=== PATIENT | male | born 1970 | race Caucasian/White ===

== ENCOUNTER 2020-05-23 07:53 | Day surgery (SDC) | payer OTHER, SELFPAY ==
[2020-05-17 10:40] VITALS: BMI 31.4
--- NOTE | 2020-05-22 10:04 | P.CONAN_ITS ---
Documented by User: Milvia Veliz 05/22/20 10:06 HPI - Anesthesia Eval Consult details Narrative: 49yo M for EGD and Colonoscopy [facility] Past Medical History Medical History Asthma GERD (gastroesophageal reflux disease) Renal calculi Surgical History Surgical History Hx of esophagogastroduodenoscopy S/P cystoscopy with ureteral stent placement Social History Social History Smoking Status: Never smoker Use of substances other than those prescribed or required for medical reasons: No Advance Directives Information Provided: No Recently lost weight without trying: No Meds Allergies Allergy/AdvReac Type Severity Reaction Status Date / Time No Known Allergies Allergy Verified 05/17/20 10:45 Home Medications Medication Instructions Recorded Confirmed Type albuterol sulfate [Proventil HFA] 2 puff INHALATION Q4-6H PRN 05/17/20 05/17/20 History omeprazole 20 mg PO DAILY 05/17/20 05/17/20 History Exam Exam Date and Time: May 22, 2020 1004 Height,Weight and Vital Signs: Height 6 ft 2 in Weight 111.13 kg Assessment and Plan Assessment Anesthesia Assessment: Chart Reviewed Documented by User: Joshua Rodriguez MD 05/23/20 09:18 [facility] Past Medical History Medical History Asthma GERD (gastroesophageal reflux disease) Renal calculi Surgical History Surgical History Hx of esophagogastroduodenoscopy S/P cystoscopy with ureteral stent placement Social History Social History Smoking Status: Never smoker Use of substances other than those prescribed or required for medical reasons: No Advance Directives Information Provided: No Recently lost weight without trying: No Meds Allergies Allergy/AdvReac Type Severity Reaction Status Date / Time No Known Allergies Allergy Verified 05/17/20 10:45 Home Medications Medication Instructions Recorded Confirmed Type albuterol sulfate [Proventil HFA] 2 puff INHALATION Q4-6H PRN 05/17/20 05/17/20 History omeprazole 20 mg PO DAILY 05/17/20 05/17/20 History Exam Airway Mallampati Class: II TM Dist: >3cm Neck ROM: Full Loose/Missing/Broken Teeth: No Heart: rrr Lungs: nl Other: ao3 Assessment and Plan Assessment Anesthesia Assessment: Anesthesia Plan Discussed and Chart Reviewed Final Anesthetic Review NPO: Yes ASA Class: II Final Preanesthetic Review: No Changes in Pt Med Stat and Consent Obtained/Reviewed Patient Risk: Low Procedure Risk: Low Anesthetic Plan Anesthetic Plan: MAC: Disposition: Standard PACU
[2020-05-23] MEDS: Lactated Ringers 1,000 ML 100 ML IVCONT (08:45)
[2020-05-23 08:53] VITALS: BP 122/79; PULSE 72; RESP 16; TEMP 36.4; O2SAT 97
--- NOTE | 2020-05-23 09:20 | MHC.SHP ---
Pre-Procedural Eval Section B Chief Complaint: screening acid reflux Details of Present Illness: gerd and colon screen Relevant Family History (Specify if Yes): No Relevant Social History: None Present Medications: see Short Stay Collaborative assessment Medical History: Significant History (asthma) History of Previous Operations: Relevant previous surgery/procedure and date(s) (kidney stone) Allergies: Allergies Allergy/AdvReac Type Severity Reaction Status Date / Time No Known Allergies Allergy Verified 05/17/20 10:45 Review of Systems Sugical H&P ROS: Negative: Constitution, Cardiovascular, Respiratory, Neurological, Psychiatric, Hem-Onc, Allergic/Immunologic, Gastrointestinal, Genitourinary, Musculoskeletal, Integumentary, Endocrine and Eyes/Ears/Nose/Throat Exam Surgical H&P Exam: Normal: HEENT, Normal: Heart, Normal: Lungs, Normal: Extremities, Normal: Abdomen, Normal: Skin and Normal: Neurological Plan Diagnosis/Plan: Unchanged Patient has been examined and remains a candidate for the planned procedure
--- NOTE | 2020-05-23 09:51 | PM.OP ---
Brief Operative Note Date of procedure: 05/23/20 Pre-op diagnosis: GERd, colon screening Post-op diagnosis: same Procedure: Operative Information Procedure Description: EGD, Colonoscopy FLEXIBLE TRANSORAL UPPER GASTROINTESTINAL ENDOSCOPY AND COLONOSCOPY PROCEDURE NOTE UPPER ENDOSCOPY Consent: Indications for the procedure and potential complications of bleeding, perforation, reaction to medications and missed diagnosis were discussed with the patient and informed consent was obtained. Instrument: Olympus GIF H 190 J mid size upper endoscope Monitoring: Vital signs and clinical assessment, continuous EKG monitoring, Pulse oximetry, Carbon Dioxide monitoring and blood pressure monitoring were done throughout the procedure. Procedure: The patient was placed in the left lateral decubitis position and pre-procedure medications were administered and a bite block was placed. The endoscope was inserted into the mouth and advanced under direct vision to the third part of duodenum. A careful inspection was made as the upper endoscope was withdrawn including a retroflexed examination of the proximal stomach; Findings and interventions are described below. Findings: Larynx:normal Esophagus: GE junction at 40 cm, diaphragm hiatus at 40 cm, normal mucosa Stomach: Normal mucosa. Biopsies were obtained to r/o h pylori. Grade 2 flap valve on retroflexed examination of the cardia. Duodenum: Normal bulb and descending duodenum, Intervention: Biopsies as noted above COLONOSCOPY Instrument: Olympus variable stiffness pediatric scope 190L Colonoscopy Monitoring: Vital signs and clinical assessment, continuous EKG monitoring, Pulse oximetry, Carbon Dioxide monitoring and blood pressure monitoring were done throughout the procedure. Colon withdrawal time was 13 minutes. Procedure: The patient was placed in the left lateral decubitis position and pre-procedure medications were administered. After a digital rectal examination of the ano-rectum, the video colonoscope was inserted into the rectum and advanced through the colon to the cecum/TI. The colonoscope was slowly withdrawn in a retrograde panoramic fashion and the colon mucosa was carefully examined including a retroflexed view of the rectum. Findings and interventions are described below. Procedure Difficulty: Findings: Terminal Ileum-normal Cecum:normal Ascending Colon: normal Transverse Colon -normal Descending Colon:normal Sigmoid Colon: normal, 8-10 mm sessile polyp removed with cold snare Rectum: Retroflexion with small internal hemorrhoids, grade I Anorectum - normal Colon preparation: [place] Bowel Preparation Scale Right colon; 3 Transverse colon: 3 Left colon; 3 (0 = Unprepared colon segment with mucosa not seen due to solid stool that cannot be cleared. 1 = Portion of mucosa of the colon segment seen, but other areas of the colon segment not well seen due to staining, residual stool and/or opaque liquid. 2 = Minor amount of residual staining, small fragments of stool and/or opaque liquid, but mucosa of colon segment seen well. 3 = Entire mucosa of colon segment seen well with no residual staining, small fragments of stool or opaque liquid) Impression and Post Procedure Diagnosis: Endoscopy Findings: normal Colonoscopy Findings: internal hemorrhoids polyp Plan: Await Pathology results Repeat Colonoscopy in 5 yrs if adenoma polyp, otherwise 10 yrs or earlier if clinically indicated High fiber diet leaflet avoid straining at stool, epsom salts and sitz bath, anusol supps or cream Above findings were reviewed with the patient and relevant handouts were provided if indicated. Surgeon: Kassy Marques MD Anesthesia: MAC Condition: stable Disposition: PACU
[2020-05-23 09:54] VITALS: BP 96/56; PULSE 64; TEMP 36.2; O2SAT 97
[2020-05-23 10:10] VITALS: BP 100/69; PULSE 58; RESP 16; TEMP 522.2; TEMP 972; O2SAT 96
[2020-05-23 10:17] VITALS: BP 100/67; PULSE 68; RESP 16; TEMP 36.1; O2SAT 98
--- NOTE | 2020-05-23 10:35 | HO.POSTANES ---
Post Anesthesia Evaluation Post Anesthesia Evaluation Vital Signs: Vital Signs Temp Pulse Resp BP Pulse Ox 05/23/20 10:17 97 F 68 16 100/67 98 05/23/20 10:10 972 F H 58 16 100/69 96 05/23/20 09:54 97.2 F 64 96/56 L 97 05/23/20 08:53 97.5 F 72 16 122/79 97 Anesthesia: Monitored Mental Status: Awake Pain Control: Satisfactory Nausea/Vomiting: None Hydration: Adequate Anesthesia-Related Issues: No Anes. Related Issues
== END 2020-05-23 10:52 | disposition home or self-care (01) ==
PROVIDERS: Internal Medicine Gastroenterology; PCP Internal Medicine; Visit Provider Internal Medicine
PROC: (CPT 45385; principal; 2020-05-23 09:20)
DX: Z12.11 Encounter for screening for malignant neoplasm of colon (principal); D12.5 Benign neoplasm of sigmoid colon; K64.0 First degree hemorrhoids; K21.9 Gastro-esophageal reflux disease without esophagitis; K29.50 Unspecified chronic gastritis without bleeding; K44.9 Diaphragmatic hernia without obstruction or gangrene; J45.909 Unspecified asthma, uncomplicated; Z87.442 Personal history of urinary calculi; Z79.899 Other long term (current) drug therapy
CPT/HCPCS: 45385; 43239; 88305; 88342

== ENCOUNTER → 2020-06-12 14:47 | Outpatient (BNVA) | payer OTHER, SELFPAY | PROVIDERS: PCP Internal Medicine; Visit Provider Physician Assistant | DX: Z76.89 Persons encountering health services in other specified circumstances (principal) ==

== ENCOUNTER 2021-06-28 08:25 | Outpatient (REF) | payer OTHER, SELFPAY ==
[2021-06-28 08:39] LABS: MANUAL DIFF FLAG NO
[2021-06-28 09:17] LABS: Basophils Percent Auto 0.4 % (0-2); Eosinophils Absolute Auto 0.2 X10*3/uL (0.0-0.4); Eosinophils Percent Auto 4.4 % (0-4); Hematocrit 48.9 % (42.0-52.0); Hemoglobin 15.4 g/dl (14.0-18.0); Imm Gran Abs Auto 0.01 X10*3/uL (0.00-0.03); Imm Gran Pct Auto 0.2 % (0.0-0.4); Lymphocytes Absolute Auto 1.2 X10*3/uL (1.2-4.9); Lymphocytes Percent Auto 27.5 % (20-40); Mean Corpuscular HGB Conc 31.5 g/dl (31.0-36.0); Mean Corpuscular Hemoglobin 27.5 pg (27.0-33.0); Mean Corpuscular Volume 87.2 fL (80.0-98.0); Mean Platelet Volume 9.6 fL (9.4-12.4); Monocytes Absolute Auto 0.5 X10*3/uL (0.1-1.2); Neutrophils Absolute Auto 2.6 x10*3/uL (2.0-8.3); Neutrophils Percent Auto 57.5 % (45-73); Platelet Count 207 X10*3/uL (160-400); Red Blood Count 5.61 X10*6/uL (4.60-5.80); Red Cell Distribution Width 13.6 % (11.0-16.0); White Blood Count 4.5 X10*3/uL (4.8-10.8)
[2021-06-28 09:18] LABS: Appearance Urine CLEAR; Color Urine YELLOW; Glucose Urine UA NEG (NEG); Leukocyte Esterase Urine NEG (NEG); Nitrite Urine NEG (NEG); Urine Blood NEG (NEG); Urine Ketones NEG (NEG); Urine Protein 1+ MG/DL (NEG-TRACE)
[2021-06-28 09:35] LABS: RBC Urine 0-2 /HPF (0); WBC Urine 0 /HPF (0-4)
[2021-06-28 09:36] LABS: Amorphous Sediment Urine TRACE /LPF; Squamous Epithelial Cell Urine TRACE /LPF
[2021-06-28 09:39] LABS: Alanine Aminotransferase 27 U/L (0-40); Albumin Level 4.1 g/dL (3.5-5.0); Alkaline Phosphatase 88 U/L (39-117); Anion Gap 10 (12-20); Aspartate Amino Transferase 20 U/L (5-37); Blood Urea Nitrogen 21 mg/dL (9-16); Calcium 9.1 mg/dL (8.4-10.2); Carbon Dioxide 30 mmol/L (22-29); Chloride 105 mmol/L (96-108); Cholesterol 185 mg/dL; Estimated Glomerular Filt Rate > 60; Glucose Random 101 mg/dL (60-115); HDL Cholesterol 40 mg/dL; LDL Cholesterol Calculated 126 mg/dl; Potassium 4.9 mmol/L (3.3-5.1); Sodium 140 mmol/L (135-145); Total Protein 7.2 g/dL (6.5-8.0); Triglycerides 96 mg/dL
[2021-06-28 10:01] LABS: Free T4 (Free Thyroxine) 0.89 ng/dL (0.71-1.85); Prostate Specific Antigen Scr 0.71 ng/mL (<0.05-4.0); Thyroid Stimulating Hormone 0.93 uIU/mL (0.32-4.0)
[2021-06-30 09:37] LABS: Vitamin B12 792 pg/mL (200-900)
== END 2021-06-28 08:26 | disposition home or self-care (01) ==
LOC: HO.LAB 08:25
PROVIDERS: PCP Internal Medicine; Visit Provider Internal Medicine
DX: Z12.5 Encounter for screening for malignant neoplasm of prostate (principal); E66.9 Obesity, unspecified; E78.00 Pure hypercholesterolemia, unspecified
CPT/HCPCS: 36415; 80053; 80061; 81001; 82607; 82746; 84153; 84439; 84443; 85025

== ENCOUNTER 2021-07-16 12:05 | Outpatient (REF) | payer OTHER, SELFPAY ==
--- NOTE | ~2021-07-16 | US_ITS ---
EXAMINATION: US PELVIS LIMITED (BLADDER) CLINICAL INFORMATION: Dysuria COMPARISON: CT abdomen and pelvis 02/16/2018. TECHNIQUE: Real-time imaging of the bladder. FINDINGS: BLADDER: Well distended and normal. Bilateral ureteral jets are demonstrated. Prevoid bladder volume is 302 mL. Postvoid bladder volume is 15 mL. Prostate volume 28 mL. US/US bladder IMPRESSION: There is a small postvoid residual bladder volume. No focal thickening or echogenic stones. Normal prostate volume.
== END 2021-07-16 12:06 | disposition home or self-care (01) ==
LOC: HO.US 12:05
PROVIDERS: PCP Internal Medicine; Visit Provider Internal Medicine
DX: R30.0 Dysuria (principal)
CPT/HCPCS: 76857

== ENCOUNTER 2021-08-13 12:29 | Outpatient (REF) | payer OTHER, SELFPAY ==
[2021-08-13 15:17] LABS: Influenza A PCR NEGATIVE (Negative); Influenza B PCR NEGATIVE (Negative); Resp Syncy Virus RNA Qual PCR NEGATIVE (Negative); SARS COV2 PCR INHOUSE POSITIVE (Negative)
== END 2021-08-13 12:30 | disposition home or self-care (01) ==
LOC: HO.LAB 12:29
PROVIDERS: Visit Provider Family Medicine
DX: Z20.822 Contact with and (suspected) exposure to COVID-19 (principal); B34.9 Viral infection, unspecified
CPT/HCPCS: 0241U

== ENCOUNTER 2022-08-04 14:14 | Outpatient (REF) | payer OTHER, SELFPAY ==
[2022-08-04 15:16] LABS: Influenza A PCR POSITIVE (Negative); Influenza B PCR NEGATIVE (Negative); Resp Syncy Virus RNA Qual PCR NEGATIVE (Negative); SARS COV2 PCR INHOUSE NEGATIVE (Negative)
== END 2022-08-04 14:15 | disposition home or self-care (01) ==
LOC: HO.LNP 14:14
PROVIDERS: Visit Provider Nurse Practitioner Family
DX: Z20.822 Contact with and (suspected) exposure to COVID-19 (principal); B34.9 Viral infection, unspecified
CPT/HCPCS: 0241U

== ENCOUNTER 2022-09-07 09:29 | Outpatient (REF) | payer OTHER, SELFPAY ==
[2022-09-07 13:42] LABS: Blood Urea Nitrogen 18 mg/dL (9-16); Estimated Glomerular Filt Rate > 60
== END 2022-09-07 09:30 | disposition home or self-care (01) ==
LOC: HO.LAB 09:29
PROVIDERS: PCP Internal Medicine; Visit Provider Specialist
DX: B00.52 Herpesviral keratitis (principal)
CPT/HCPCS: 36415; 82565; 84520

== ENCOUNTER → 2022-10-13 13:14 | Outpatient (BNVA) | payer SELFPAY | PROVIDERS: PCP Internal Medicine; Visit Provider Physician Assistant Medical | DX: Z02.79 Encounter for issue of other medical certificate (principal) ==

== ENCOUNTER → 2024-06-14 08:20 | Outpatient (BNVA) | payer OTHER, SELFPAY | PROVIDERS: PCP Internal Medicine; Visit Provider Internal Medicine | DX: L23.7 Allergic contact dermatitis due to plants, except food (principal) | CPT/HCPCS: 99202 ==

== ENCOUNTER 2024-07-25 09:44 | Outpatient (AMB) | payer BC, SELFPAY ==
--- NOTE | 2024-07-25 10:48 | MHC.OFFWIV ---
Intake Vital Signs 07/25/24 10:49 Height 6 ft 2 in Weight 279 lb BMI 35.8 BP 136/90 H Blood Pressure Location Lt brachial Position Sitting Pulse 64 Pulse Source Pulse Oximeter Temp 97.5 F Temp Source Temporal Artery Scan Pulse Oximetry (%) 97 Oxygen Delivery Method Room Air Intake Visit Reasons: EP-lt eye swollen, rt elbow pain Intake Note: Patient here for left eye swelling and right elbow pain that has been present for about 1 week. Patient Tobacco Use Status: Never used Tobacco Allergies No Known Allergies Allergy (Verified 07/25/24 10:49) Do you need a note to return to daycare/school/sports/work: Yes HPI HPI Comments History of Present Illness Details History of Present Illness The patient is a 53-year-old male presenting with a swollen left eyelid and pain in the right elbow. The left eyelid became swollen this morning; the patient reports that the eye was not crusted shut and visual acuity remains intact. There is no history of contact lens use. The swelling is limited to the upper lid, and warm compresses have been applied earlier in the day with no improvement. The patient reports no discharge from the eye. Additionally, the patient has experienced pain in the right elbow since an exposure to poison tri approximately one month ago. There is localized pain and swelling at the elbow without loss of mobility. No contact with biomedical instrument technician was sought prior to today's visit regarding these issues. Physical Exam General: Cooperative, healthy appearing, comfortable, no acute distress and well developed Orientation: Patient oriented x3 Limitations: No limitations Head: Normal to inspection Ears: Hearing grossly normal bilaterally Nose: Normal Nxternal nose present Face and sinus: ormal facial exam Eyes: erythema and edema of left upper lid, pterygium on left eye, no discharge noted, EOM intact Neck: Normal visual inspection and Yes full ROM Respiratory: Normal respiratory effort and able to speak in complete sentences. Skin: No rashes or lesions noted, except for swelling in the right elbow area Neuro: Patient oriented x3 Extremities: Swelling and pain noted in the right elbow area, especially when touched [facility] Medical History (Updated 07/25/24 @ 11:04 by Mandy Valle PA-C) Obesity (BMI 30-39.9) Rotator cuff disorder Renal calculi GERD (gastroesophageal reflux disease) Asthma Surgical History Hx of esophagogastroduodenoscopy S/P cystoscopy with ureteral stent placement Family History (Updated 12/19/20 @ 12:28 by Sherie Bedoya MD) Maternal Uncle Colon malignancy Maternal Aunt Breast cancer Paternal Aunt Breast cancer Daughter Bipolar 1 disorder Social History (Updated 06/27/21 @ 14:14 by Sherie Bedoya MD) Housing: House Alcohol intake: never Patient Tobacco Use Status: Never used Tobacco Tobacco use type: Cigarette e-Cigarette/Vaping Use: Never Used Second Hand Smoke Exposure: No Current occupational status: employed Review of Systems Const All systems reviewed & are unremarkable except as noted in HPI and below Physical Exam Vital Signs: Last Vital Signs Temp 97.5 F 07/25/24 10:49 Pulse 64 07/25/24 10:49 BP 136/90 H 07/25/24 10:49 Pulse Ox 97 07/25/24 10:49 Oxygen Delivery Method Room Air 07/25/24 10:49 BMI result Body Mass Index 35.8 Assessment & Plan Assessment & Plan (1) Hordeolum externum left upper eyelid: Code(s): H00.014 - Hordeolum externum left upper eyelid Plan: - For the swollen eyelid, I recommend continuing the use of warm compresses every hour or two, applying for 10 minutes each time. Erythromycin ophthalmic ointment will be prescribed to be applied four times daily to the left eye for seven days to prophylactically treat potential infectious etiology. Patient was informed and verbally consented to the use of an ambient scribe for clinic note documentation during this visit. (2) Right elbow pain: Code(s): M25.521 - Pain in right elbow Plan: - For the right elbow pain, I recommend non-steroidal anti-inflammatory drugs NSAIDs like Aleve for reducing inflammation and suggest applying ice to the affected area. Encourage rest and monitoring over the next few weeks. If symptoms persist, follow-up with Dr. Mendez is indicated for further evaluation. Medications: New erythromycin Apply to left eye 4 times a day while awake 0.5 inches ophthalmic (eye) QID 3.5 grams 0RF Coding Level of Care Code Est Pt Level 4 (58766) Diagnoses Hordeolum externum left upper eyelid H00.014 Right elbow pain M25.521
[2024-07-25 10:49] VITALS: BP 136/90; PULSE 64; TEMP 36.4; O2SAT 97; BMI 35.8
== END 2024-07-25 11:18 | disposition home or self-care (01) ==
PROVIDERS: PCP Internal Medicine; Visit Provider Physician Assistant
DX: H00.014 Hordeolum externum left upper eyelid (principal); M25.521 Pain in right elbow

== ENCOUNTER 2024-09-05 09:56 | Outpatient (AMB) | payer BC, SELFPAY ==
[2024-09-05 10:12] VITALS: BP 122/88; PULSE 112; TEMP 37; O2SAT 96; BMI 34.4
--- NOTE | 2024-09-05 10:12 | MHC.OFFWIV ---
Intake Vital Signs 09/05/24 10:12 Height 6 ft 2 in Weight 268 lb BMI 34.4 BP 122/88 Blood Pressure Location Lt brachial Position Sitting Pulse 112 H Pulse Source Pulse Oximeter Temp 98.6 F Temp Source Oral Pulse Oximetry (%) 96 Oxygen Delivery Method Room Air Intake Visit Reasons: EP Head ache, stomach, nausea Intake Note: Pt presents to the office today for c/o headache,stomach pain, nausea,vomiting,diarrhea x3 days. Patient Tobacco Use Status: Never used Tobacco Allergies No Known Allergies Allergy (Verified 09/05/24 10:14) HPI HPI Comments History of Present Illness Details History of Present Illness - The patient is a 53-year-old male presenting with acute onset of gastrointestinal symptoms including nausea, vomiting, diarrhea, and generalized body aches. - Symptoms began last night and include severe body aches, with nausea, vomiting, and diarrhea accompanying. - He denies hematochezia, melena, or documented fevers, though he felt subjectively hot overnight. - Limited oral intake due to symptoms has been reported. - Increased heart rate noted, potentially due to dehydration from prolonged vomiting and diarrhea. - Previous episodes of similar symptoms have not been experienced previously. - Norovirus is suspected due to ongoing viral activity in the community. Grandson recently sick with similar symptoms. - Treatment interventions to date have been limited to dietary adjustments but no medical therapies have been effective yet. Physical Exam General: Cooperative, healthy appearing, comfortable, no acute distress and well developed Orientation: Patient oriented x3 Limitations: No limitations Head: Normal to inspection Ears: Hearing grossly normal bilaterally Nose: Normal Nxternal nose present Face and sinus: ormal facial exam Eyes: Appearance normal, both eyes and all related structures Neck: Normal visual inspection and Yes full ROM Respiratory: Normal respiratory effort and able to speak in complete sentences. Skin: No rashes or lesions noted Neuro: Patient oriented x3 Extremities: Normal to inspection [facility] Medical History Obesity (BMI 30-39.9) Rotator cuff disorder Renal calculi GERD (gastroesophageal reflux disease) Asthma Surgical History Hx of esophagogastroduodenoscopy S/P cystoscopy with ureteral stent placement Family History Maternal Uncle Colon malignancy Maternal Aunt Breast cancer Paternal Aunt Breast cancer Daughter Bipolar 1 disorder Social History Housing: House Alcohol intake: never Patient Tobacco Use Status: Never used Tobacco Tobacco use type: Cigarette e-Cigarette/Vaping Use: Never Used Second Hand Smoke Exposure: No Current occupational status: employed Review of Systems Const All systems reviewed & are unremarkable except as noted in HPI and below Physical Exam Vital Signs: Last Vital Signs Temp 98.6 F 09/05/24 10:12 Pulse 112 H 09/05/24 10:12 BP 122/88 09/05/24 10:12 Pulse Ox 96 09/05/24 10:12 Oxygen Delivery Method Room Air 09/05/24 10:12 BMI result Body Mass Index 34.4 Office Meds ondansetron 4 mg disintegrating tablet Performing Provider: Mandy Valle PA-C Performing Location: [facility] Administered by: Mandy Valle PA-C on 09/05/24 10:37 Dose Route Admin Location Dispensed Lot Number Expiration Date [facility] Electronic [employer] 4 mg translingual 1 tab 11/14/24 43400-742-43 Assessment & Plan Assessment & Plan (1) Viral gastroenteritis: Code(s): A08.4 - Viral intestinal infection, unspecified Plan: Plan Management of the suspected acute viral gastroenteritis includes dietary modifications and prescriptions. The patient is advised to follow a bland diet BRAT diet and has been prescribed ondansetron Zofran to manage nausea. Hydration is encouraged with low-sugar fluids like Pedialyte to counteract dehydration effects. Symptom monitoring is essential given the self-limiting nature of viral gastroenteritis, and the patient knows to reach out for further medical attention if symptoms do not resolve or worsen. Work note for 5 days okay. Gave zofran in office as pt actively vomiting. Patient was informed and verbally consented to the use of an ambient scribe for clinic note documentation during this visit. Orders: Orders AMB Ondansetron Adult Dose Today A08.4 - Viral intestinal infection, unspecified Medications: New ondansetron 4 mg PO Q8H PRN 10 tabs 0RF nausea and vomiting ondansetron 4 mg translingual ONCE 1 tab 0RF A08.4 - Viral intestinal infection, unspecified Coding Level of Care Code Est Pt Level 4 (25208) Diagnoses Viral gastroenteritis A08.4
== END 2024-09-05 10:37 | disposition home or self-care (01) ==
PROVIDERS: PCP Internal Medicine; Visit Provider Physician Assistant
DX: A08.4 Viral intestinal infection, unspecified (principal)

== ENCOUNTER → 2024-09-05 09:56 | Outpatient (BNVA) | payer BC, SELFPAY | PROVIDERS: PCP Internal Medicine; Visit Provider Physician Assistant | DX: A08.4 Viral intestinal infection, unspecified (principal) ==

== ENCOUNTER → 2024-10-06 14:56 | Outpatient (BNVA) | payer SELFPAY | PROVIDERS: Visit Provider Physician Assistant Medical | DX: Z02.79 Encounter for issue of other medical certificate (principal) ==

== ENCOUNTER 2024-11-09 11:23 | Outpatient (AMB) | payer BC, SELFPAY ==
--- NOTE | 2024-11-09 11:30 | A.OFFPC_ITS ---
Vital Signs 11/09/24 11:31 Height 6 ft 2 in Weight 275 lb 3.2 oz BMI 35.3 BP 124/80 Blood Pressure Location Lt brachial Position Sitting Respiration 18 Pulse 71 Pulse Source Pulse Oximeter Temp 98.6 F Temp Source Oral Pulse Oximetry (%) 97 Oxygen Delivery Method Room Air Intake Visit Reasons: establish care Intake Note: Patient is a new patient here to re-establish care. Patient has not been seen elsewhere; had a lapse in care due to insurance issues. No request for medical records is needed. 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 Bedoya and would like to be placed back with him The patient is also asking to be referred to back to Dr. Will Hubbard who did his corneal implant He reports that is feeling ok other zendejas. He denies chest pain, sob, heart palpitation and dizziness He denies any stomach pain or change in bowel habits [facility] Medical History Asthma GERD (gastroesophageal reflux disease) Tubular adenoma of colon (~2019) Snoring Obesity (BMI 30-39.9) History of renal calculi Rotator cuff disorder Surgical History History of colonoscopy History of esophagogastroduodenoscopy (EGD) S/P cystoscopy with ureteral stent placement Family History Maternal Uncle Colon malignancy Maternal Aunt Breast cancer Paternal Aunt Breast cancer Daughter Bipolar 1 disorder Social History Housing: House Alcohol intake: never Patient Tobacco Use Status: Never used Tobacco Tobacco use type: Cigarette e-Cigarette/Vaping Use: Never Used Second Hand Smoke Exposure: No service: No Current occupational status: employed 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 1. Little interest or pleasure in doing things: not at all 2. Feeling down, depressed, or hopeless: not at all 3. Trouble falling or staying asleep, or sleeping too much: not at all 4. Feeling tired or having little energy: not at all 5. Poor appetite or overeating: not at all 6. Feeling bad about yourself - or that you are a failure or have let yourself or your family down: not at all 7. Trouble concentrating on things, such as reading the newspaper or watching television: not at all 8. Moving or speaking so slowly that other people could have noticed. Or the opposite - being so fidgety or restless that you have been moving around a lot more than usual: not at all 9. Thoughts that you would be better off or of hurting yourself in some way: not at all Total score: 0 Depression Screening Interpretation: Negative Depression Screening Done: Yes 30544 - PHQ-9 Billing: Yes Source: Developed by Drs. Jewel Murphy, Violeta Almodovar, Noble Bray and colleagues, with an educational jesi from [facility]. Thrive Questionnaire Date Thrive assessed: 11/09/24 I am a: Patient What is your living situation today?: I have a steady place to live Within the past 12 months, did the food you bought not last and you didn't have the money to get more?: Never true Within the past 12 months, did you worry whether your food would run out before you got money to buy more?: Never true Do you have trouble paying for medicines?: No Do you have trouble getting transportation to medical appointments?: No Do you have trouble paying your heating and electricity bill?: No Do you have trouble taking care of your child, family member or friend?: No Do you have trouble with day-to-day activities such as bathing, preparing meals, shopping, managing finances, etc.?: No Are you currently unemployed and looking for a job?: No Are you interested in more education?: No Please select the resources that you would like help with: None Currently or been in a relationship where the following occur: I choose not to answer THRIVE Score: 0 AUDIT C Alcohol Use Questionnaire (AUDIT-C) 1. How often do you have a drink containing alcohol?: Never Total Score: 0 LACIE-7 AMB Questionnaire LACIE-7 Date LACIE - 7 assessed: 11/09/24 Feeling nervous, anxious, or on edge: 0 = Not at all Not being able to stop or control worryin = Not at all Worrying too much about different things: 0 = Not at all Trouble relaxin = Not at all Being so restless that it is hard to sit still: 0 = Not at all Becoming easily annoyed or irritable: 0 = Not at all Feeling afraid as if something awful might happen: 0 = Not at all Total LACIE-7 score (0-4 normal; 5-9 mild; 10-14 moderate; 15-21 severe): 0 Source: Developed by Drs. Jewel Murphy, Violeta Almodovar, Noble Bray and colleagues, with an educational jesi from [facility]. LACIE-7 Assessment Billing LACIE-7 Assessment Tool: LACIE-7 Assessment 60040 Review of Systems Const Denies headache(s) Eyes Denies loss of vision ENT Denies vertigo, Denies dizziness, Denies headache(s) and Denies sore throat Card Denies chest pain, Denies leg edema and Denies lightheadedness Resp Denies cough, Denies hemoptysis and Denies wheezing GI Denies abdominal pain, Denies melena, Denies constipation, Denies diarrhea and Denies vomiting Denies dysuria, Denies urinary frequency and Denies urinary urgency Musc Denies arthralgias, Denies joint swelling, Denies numbness and Denies tingling Neuro Denies Abnormal speech present, Denies behavioral changes, Denies vertigo, Denies dizziness, Denies headache(s), Denies loss of vision, Denies memory loss, Denies numbness and Denies tingling Psych Denies anxiety, Denies behavioral changes, Denies depression, Denies memory loss and Denies panic attacks Bernabe/Lymph Denies easy bleeding and Denies easy bruising Aller/Immun Denies wheezing Physical exam (Primary Care) Vital Signs: Last Vital Signs Temp 98.6 F 11/09/24 11:31 Pulse 71 11/09/24 11:31 Resp 18 11/09/24 11:31 BP 124/80 11/09/24 11:31 Pulse Ox 97 11/09/24 11:31 Oxygen Delivery Method Room Air 11/09/24 11:31 BMI result Body Mass Index 35.3 Tobacco/Smoking Status: Tobacco use Status Tobacco use date assessed 11/09/24 11/09/24 11:39 Patient Tobacco Use Status Never used Tobacco 11/09/24 11:39 Tobacco use type Cigarette 11/09/24 11:39 e-Cigarette/Vaping Use Never Used 11/09/24 11:39 PHQ-9: PHQ-9 Score PHQ-9: Total score 0 11/09/24 11:56 Depression Screening Interpretation: Negative Thrive Assessment: Date of Thrive Assessment Date Thrive assessed 11/09/24 11/09/24 11:39 Currently or been in a relationship where the following occur: I choose not to answer Const General: healthy appearing, no acute distress, alert and awake Nutritional Appearance: well nourished Orientation/consciousness: oriented to person, oriented to place and oriented to time HENMT Ears: TM's normal bilaterally General nose exam: Normal nasal mucous membranes and turbinates present Eyes Conjunctivae: conjunctivae normal Sclerae: sclerae normal Pupils: Equal, round and reactive pupils present Neck Neck: Yes no lymphadenopathy and Yes no JVD Thyroid: Thyroid normal Carotids: no bruits Resp Effort & Inspection: normal respiratory effort and not tachypneic Auscultation: no crackles, no rales, no rhonchi and no wheezes Cardio Rate: regular rate Rhythm: regular rhythm Heart sounds: no murmurs and normal S1 and S2 GI Inspection: Yes distended and Yes obesity Palpation (GI): Soft to palpation, nontender, no hepatomegaly and no splenomegaly Auscultation: normal bowel sounds Skin General skin exam: no rashes or lesions noted and dry skin Neuro General: oriented to person, oriented to place and oriented to time Cranial nerves: Yes Equal, round and reactive pupils present Speech: No Abnormal speech present Gait exam (Neuro): Normal gait present Motor exam (neuro): no tremor noted Extrem Right upper extremity: full ROM Left upper extremity: full ROM Right lower extremity: full ROM; no edema Left lower extremity: full ROM; no edema Psych Mental Status: mental status grossly normal Speech and movement: Normal speech and movement present Affect: normal affect Attitude: cooperative Thought process: Normal thought process present Coding Level of Care Code New Pt Level 3 (26064) Diagnoses Snoring R06.83 Obesity (BMI 30-39.9) E66.9 Status post corneal transplant Z94.7 Additional Codes LACIE-7 Assessment Billing - LACIE-7 Assessment Tool: LACIE-7 Assessment 32636 ([id number]) PHQ-9 - 51900 - PHQ-9 Billing: Yes ([id number]) Time Spent (min) 36 Assessment & Plan Assessment & Plan (1) Snoring: Comment: (male, >50yo, +snorning, BMI 37, Neck 46cm, mallampati 3 - High Risk for BASHIR - needs sleep testing for DOT) Code(s): R06.83 - Snoring Category: Medical Plan: sleep study ordered (2) Obesity (BMI 30-39.9): Code(s): E66.9 - Obesity, unspecified Category: Medical Plan: Encouraged to exercise for at least 30 minutes a day/5 days a week Healthy eating discussed. Encouraged to eat fruits/vegetables, protein- fish/baked chicken, and to avoid salty/fried foods, sweets, caffeine and carbohydrates. Encouraged to increase water intake 6-8 glasses a day (3) Status post corneal transplant: Code(s): Z94.7 - Corneal transplant status Category: Surgical Plan: Dr. Will Hubbard , [place] did his surgery, he has not seen him over 2 years. Reports that when he tried to make an appt, he was told that has to be referred again. Referral was placed Orders: Orders Lipid Panel Today J45.909 - Unspecified asthma, uncomplicated, K21.9 - Gastro- esophageal reflux disease without esophagitis, R13.10 - Dysphagia, unspecified, Z00.00 - Encounter for general adult medical examination without abnormal findings TSH reflex Free T4 Today J45.909 - Unspecified asthma, uncomplicated, K21.9 - Gastro-esophageal reflux disease without esophagitis, R13.10 - Dysphagia, unspecified, Z00.00 - Encounter for general adult medical examination without abnormal findings UA CC w/rflx Micro + Cult Today J45.909 - Unspecified asthma, uncomplicated, K21.9 - Gastro-esophageal reflux disease without esophagitis, R13.10 - Dysphagia, unspecified, Z00.00 - Encounter for general adult medical examination without abnormal findings Glucose Fasting Today J45.909 - Unspecified asthma, uncomplicated, K21.9 - Gastro-esophageal reflux disease without esophagitis, R13.10 - Dysphagia, unspecified, Z00.00 - Encounter for general adult medical examination without abnormal findings Comprehensive [place]. Panel Fast Today J45.909 - Unspecified asthma, uncomplicated, K21.9 - Gastro-esophageal reflux disease without esophagitis, R13.10 - Dysphagia, unspecified, Z00.00 - Encounter for general adult medical examination without abnormal findings Complete Blood Count Auto Diff Today J45.90 - Unspecified asthma, uncomplicated, K21.9 - Gastro-esophageal reflux disease without esophagitis, R13.10 - Dysphagia, unspecified, Z00.00 - Encounter for general adult medical examination without abnormal findings Vitamin D 25-OH Total Today J45.90 - Unspecified asthma, uncomplicated, K21.9 - Gastro-esophageal reflux disease without esophagitis, R13.10 - Dysphagia, unspecified, Z00.00 - Encounter for general adult medical examination without abnormal findings Referrals Sleep Medicine Referral R06.83 - Snoring Ophthalmology Referral Z94.7 - Corneal transplant status
[2024-11-09 11:31] VITALS: BP 124/80; PULSE 71; RESP 18; TEMP 37; O2SAT 97; BMI 35.3
== END 2024-11-09 12:04 | disposition home or self-care (01) ==
LOC: HO.HMCH 11:24
DX: R06.83 Snoring (principal); E66.9 Obesity, unspecified; Z94.7 Corneal transplant status; Z68.35 Body mass index [BMI] 35.0-35.9, adult

== ENCOUNTER → 2024-11-09 11:23 | Outpatient (BNVA) | payer BC, SELFPAY | DX: R06.83 Snoring (principal); E66.9 Obesity, unspecified; Z68.35 Body mass index [BMI] 35.0-35.9, adult; Z94.7 Corneal transplant status | CPT/HCPCS: 96127 ==

== ENCOUNTER 2024-12-02 08:57 | Outpatient (REF) | payer BC, SELFPAY ==
[2024-12-02 09:12] LABS: MANUAL DIFF FLAG NO
[2024-12-02 10:07] LABS: Basophils Percent Auto 0.8 % (0-2); Eosinophils Absolute Auto 0.2 X10*3/uL (0.0-0.4); Eosinophils Percent Auto 4.8 % (0-4); Hemoglobin 15.7 g/dl (14.0-18.0); Lymphocytes Absolute Auto 1.3 X10*3/uL (1.2-4.9); Lymphocytes Percent Auto 33.7 % (20-40); Mean Corpuscular HGB Conc 31.4 g/dl (31.0-36.0); Mean Corpuscular Hemoglobin 27.3 pg (27.0-33.0); Mean Corpuscular Volume 86.8 fL (80.0-98.0); Mean Platelet Volume 9.5 fL (9.4-12.4); Monocytes Absolute Auto 0.4 X10*3/uL (0.1-1.2); Monocytes Percent Auto 8.9 % (2-11); Neutrophils Percent Auto 51.8 % (45-73); Platelet Count 187 X10*3/uL (160-400); Red Blood Count 5.76 X10*6/uL (4.60-5.80); Red Cell Distribution Width 13.7 % (11.0-16.0); White Blood Count 3.9 X10*3/uL (4.8-10.8)
[2024-12-02 10:41] LABS: Appearance Urine Clear; Color Urine Yellow; Glucose Urine UA Negative (Negative); Leukocyte Esterase Urine Negative (Negative); Nitrite Urine Negative (Negative); PH 8.5 (5.0-9.0); Urine Blood Negative (Negative); Urine Ketones Trace mg/dL (Negative); Urine Protein Trace mg/dL (Neg-Trace)
[2024-12-02 10:57] LABS: Alanine Aminotransferase 29 U/L (0-40); Anion Gap 12 (12-20); Aspartate Amino Transferase 26 U/L (5-37); Bilirubin Total 1.2 mg/dL (0.0-1.0); Blood Urea Nitrogen 16 mg/dL (9-16); Calcium 9.1 mg/dL (8.4-10.2); Carbon Dioxide 29 mmol/L (22-29); Chloride 105 mmol/L (96-108); Cholesterol 167 mg/dL (<200); Estimated Glomerular Filt Rate > 60; Glucose Fasting 96 mg/dL (60-99); HDL Cholesterol 39 mg/dL (>40); LDL Cholesterol Calculated 115 mg/dL (<100); Potassium 4.8 mmol/L (3.3-5.1); Sodium 141 mmol/L (135-145); Total Protein 7.3 g/dL (6.5-8.0); Triglycerides 65 mg/dL (<150)
[2024-12-02 11:25] LABS: TSH reflex Free T4 0.67 uIU/mL (0.32-4.0); Vitamin D 25-OH Total 20.5 ng/mL (>30)
[2024-12-02 13:09] LABS: Alkaline Phosphatase 87 U/L (39-117)
== END 2024-12-02 08:58 | disposition home or self-care (01) ==
LOC: HO.LAB 08:57
PROVIDERS: PCP Internal Medicine
DX: Z00.00 Encounter for general adult medical examination without abnormal findings (principal); K21.9 Gastro-esophageal reflux disease without esophagitis; J45.909 Unspecified asthma, uncomplicated; R13.10 Dysphagia, unspecified; Z13.6 Encounter for screening for cardiovascular disorders
CPT/HCPCS: 36415; 80053; 80061; 81003; 82306; 84443; 85025

== ENCOUNTER 2025-01-11 13:58 | Outpatient (AMB) | payer BC, SELFPAY ==
--- NOTE | 2025-01-11 14:07 | A.OFFVIS_ITS ---
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 Needs a sleep study, He told that he fit the criteria, he is older than 50 years old, he snores and is obese. Patient states patient gasps and stops breathing. Accompanied by: Spouse Allergies No Known Allergies Allergy (Verified 01/11/25 14:12) HPI Comments Details: 54 year old male here referred to us for sleep evaluation due to snoring. His Bronwyn helps with history. His c/o his loud pauses of snoring and gasping through the night, which last for more than a few seconds. She gets scared and she nudges him. 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 He is pretty active with the exception of L. elbow tendonitis, he says everything is fine. He had a r. 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 He feels fatigued in the mornings and has headaches, which he does not take anything to manage because they go away within 2 hours of waking. He has a history of GERD, and dysphagia with choking on his saliva he takes omeprazole daily. Denies RLS and Parasomnias. Mood and memory is stable. He does not smoke and never drinks. [facility] Medical History Asthma GERD (gastroesophageal reflux disease) Tubular adenoma of colon (~2019) Snoring Obesity (BMI 30-39.9) History of renal calculi Rotator cuff disorder Surgical History History of colonoscopy History of esophagogastroduodenoscopy (EGD) S/P cystoscopy with ureteral stent placement Family History Maternal Uncle Colon malignancy Maternal Aunt Breast cancer Paternal Aunt Breast cancer Daughter Bipolar 1 disorder Social History Housing: House Alcohol intake: never Patient Tobacco Use Status: Never used Tobacco Tobacco use type: Cigarette e-Cigarette/Vaping Use: Never Used Second Hand Smoke Exposure: No service: No Current occupational status: employed 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 Cognitive needs: No Hearing needs: No Vision needs: Yes (Reading glasses) Review of Systems Const All systems reviewed & are unremarkable except as noted in HPI and below Physical Exam Vital Signs: Last Vital Signs Pulse 96 01/11/25 14:09 BP 120/78 01/11/25 14:09 Pulse Ox 99 01/11/25 14:09 Oxygen Delivery Method Room Air 01/11/25 14:09 BMI result Body Mass Index 34.6 Const General: cooperative, comfortable and no acute distress Nutritional Appearance: obese, overweight and other (muscular built) Orientation/consciousness: patient oriented x3 HEENT Face and sinus: Yes normal facial exam and Yes face symmetric Throat: Yes other (Mallmpti score of 3) Eyes Other: R. eye corneal repair L. eye pinguecula medial side, does not obstruct vision. Pupils: Equal, round and reactive pupils present Neck Neck: Yes full ROM Resp Effort & Inspection: normal respiratory effort and able to speak in complete sentences Neuro General: patient oriented x3 and moves all extremities Cranial nerves: Yes Facial sensation intact/muscles of mastication intact, Yes Equal, round and reactive pupils present, Yes Normal accommodation reflex p resent, Yes Bilaterally intact EOM present, Yes Normal facial strength present, Yes Midline tongue present, Yes Ability to bilaterally rotate head present and Yes Ability to bilaterally elevate shoulders present Cognition (Neuro): normal cognition Gait exam (Neuro): Normal gait present Motor exam (neuro): 5/5 motor strength present throughout and Normal motor muscle tone present throughout Psych Appearance: grossly normal Attitude: cooperative Thought process: Normal thought process present Thought content: Normal thought content present Results Reviewed Results Reviewed: Reviewed Labs with patient LDL elevated and HDL low Assessment & Plan Assessment & Plan (1) BASHIR (obstructive sleep apnea): Code(s): G47.33 - Obstructive sleep apnea (adult) (pediatric) Category: Medical (2) Snoring: Comment: (male, >50yo, +snorning, BMI 37, Neck 46cm, mallampati 3 - High Risk for BASHIR - needs sleep testing for DOT) Code(s): R06.83 - Snoring Category: Medical (3) Excessive daytime sleepiness: Code(s): G47.19 - Other hypersomnia Category: Medical Plan HST snoring and gasping for air ? BASHIR evalution with HST and if inconclusive will refer to PSG. Labs fatigue r/o deficiencies B12, TSH Vit D and Ferritin. Patient Instructions: Sleep Hygiene provided: set a scheduled bedtime and wake time to help regulate the circadian rhythm and balance the release of pituitary hormones. Sleep in a dark room, temperatures below 68 degrees, and no devices n bed. Limit caffeinated products 6 hours prior to bed, and limit fluids 2-4 hours prior to bed. Gentle night yoga, diffusing essential oils, and playing soft music can be relaxing. Weight loss daily walking can help to reduce weight elevate mood and improve overall health. Coding Level of Care Code New Pt Level 4 (12277) Diagnoses BASHIR (obstructive sleep apnea) G47.33 Snoring R06.83 Excessive daytime sleepiness G47.19 Time Spent (min) 40 Comment Evaluation of BASHIR Sleep Questionnaire Difficulty falling asleep: No Difficulty staying asleep?: No Number of arousals: 1-2 Snoring: Yes Witnessed apneas: Yes Gasping arousals: Yes Nocturia: No GERD: Yes Vivid dreams: Yes Acting out dreams: No Abnormal behavior in sleep: No Abnormal movements in sleep: No Morning headaches: Yes Excessive daytime sleepiness: No Daytime naps: No Restless legs: No Hallucinations: No Sleep paralysis: No Drop attacks: No Sleep Study: No CPAP: No
[2025-01-11 14:09] VITALS: BP 120/78; PULSE 96; O2SAT 99; BMI 34.6
== END 2025-01-11 14:59 | disposition home or self-care (01) ==
LOC: HO.HSMS 13:58
PROVIDERS: Visit Provider Physician Assistant Medical
DX: G47.33 Obstructive sleep apnea (adult) (pediatric) (principal); R06.83 Snoring; G47.19 Other hypersomnia
CPT/HCPCS: 99204

== ENCOUNTER → 2025-01-11 13:58 | Outpatient (BNVA) | payer BC, SELFPAY | PROVIDERS: Visit Provider Physician Assistant Medical ==

== ENCOUNTER 2025-03-15 11:15 | Outpatient (AMB) | payer BC, SELFPAY ==
[2025-03-15 11:18] VITALS: BP 140/80; PULSE 70; RESP 18; TEMP 36.3; O2SAT 94; BMI 35.2
--- NOTE | 2025-03-15 11:18 | MHC.PC.OV ---
Vital Signs 03/15/25 11:18 03/15/25 11:37 Height 6 ft 2 in Weight 274 lb 8 oz BMI 35.2 BP 140/80 H 128/82 Blood Pressure Location Lt brachial Lt brachial Position Sitting Sitting Respiration 18 Pulse 70 Pulse Source Pulse Oximeter Temp 97.3 F Temp Source Temporal Artery Scan Pulse Oximetry (%) 94 Oxygen Delivery Method Room Air Intake Visit Reasons: annual physical Corpsman Required: No Accompanied by: Allergies No Known Allergies Allergy (Verified 03/15/25 11:38) Medication List - Last Reconciled 03/15/25 by JAS Jennings famciclovir 250 mg PO ONCE omeprazole 20 mg PO DAILY prednisolone acetate 1% 1 drp ophthalmic (eye) BID vitamin D3-vitamin K2 (MK4) 1,000-100 unit-mcg 1 tab PO DAILY MDD 1 tablet Tobacco use date assessed: 03/15/25 Dental Screening Dental Screen Date: 03/15/25 Did you have a dental visit in the last 12 months?: No Did you have a dental problem in the last 6 months where you did not have access to dental care?: No Was dental information given to patient?: No HPI annual physical HPI Details The patient is a 54-year-old male presenting for annual physical Dentist: up to date Eye: up to date Snellen: Right: Left: Corrected vision:yes, glassess-cheaters STI screening: Colonoscopy: done in 2019-sigmoid adenoma noted, due to be repeated in 2024. All first degree relatives should repeat in 5 years. Pap Smer: n/a PHQ-9: Flu: does not take this usually COVID: x2 Tdap:2019 Diet: Regular Exercise: reports that he does not workout but he is thinking about it, because they bought a treadmill, so he just needs to get motivated He was suppose to hand upper and bottom lacer his cpap, but went on vacation and he forgot about it. Encouraged the patient to call and find when he can go pick it up. He reports that his left ear is itchy. Denies chest pain, shortness of breath, heart palpitation or dizziness denies abdominal pain or change in bowel habits, positive heartburn on and off depending on what he eats. Denies any urinary symptoms PFSH Medical History Asthma GERD (gastroesophageal reflux disease) Tubular adenoma of colon (~2020) Snoring Obesity (BMI 30-39.9) History of renal calculi Rotator cuff disorder Surgical History History of colonoscopy History of esophagogastroduodenoscopy (EGD) S/P cystoscopy with ureteral stent placement Family History Maternal Uncle Colon malignancy Maternal Aunt Breast cancer Paternal Aunt Breast cancer Daughter Bipolar 1 disorder Social History Housing: House Alcohol intake: never Patient Tobacco Use Status: Never used Tobacco Tobacco use type: Cigarette e-Cigarette/Vaping Use: Never Used Second Hand Smoke Exposure: No service: No Current occupational status: employed 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 1. Little interest or pleasure in doing things: not at all 2. Feeling down, depressed, or hopeless: not at all 3. Trouble falling or staying asleep, or sleeping too much: not at all 4. Feeling tired or having little energy: not at all 5. Poor appetite or overeating: not at all 6. Feeling bad about yourself - or that you are a failure or have let yourself or your family down: not at all 7. Trouble concentrating on things, such as reading the newspaper or watching television: not at all 8. Moving or speaking so slowly that other people could have noticed. Or the opposite - being so fidgety or restless that you have been moving around a lot more than usual: not at all 9. Thoughts that you would be better off or of hurting yourself in some way: not at all Total score: 0 Depression Screening Interpretation: Negative Depression Screening Done: Yes Source: Developed by Drs. Jewel Murphy, Violeta Almodovar, Noble Bray and colleagues, with an educational jesi from [employer]. Thrive Questionnaire Date Thrive assessed: 03/15/25 I am a: Patient What is your living situation today?: I have a steady place to live Within the past 12 months, did the food you bought not last and you didn't have the money to get more?: Never true Within the past 12 months, did you worry whether your food would run out before you got money to buy more?: Never true Do you have trouble paying for medicines?: No Do you have trouble getting transportation to medical appointments?: No Do you have trouble paying your heating and electricity bill?: No Do you have trouble taking care of your child, family member or friend?: No Do you have trouble with day-to-day activities such as bathing, preparing meals, shopping, managing finances, etc.?: No Are you currently unemployed and looking for a job?: No Are you interested in more education?: No Please select the resources that you would like help with: None Currently or been in a relationship where the following occur: I choose not to answer THRIVE Score: 0 AUDIT C Alcohol Use Questionnaire (AUDIT-C) 1. How often do you have a drink containing alcohol?: Never 3. How often do you have six or more drinks on one occasion?: Never Total Score: 0 LACIE-7 AMB Questionnaire LACIE-7 Date LACIE - 7 assessed: 03/15/25 Feeling nervous, anxious, or on edge: 0 = Not at all Not being able to stop or control worryin = Not at all Worrying too much about different things: 0 = Not at all Trouble relaxin = Not at all Being so restless that it is hard to sit still: 0 = Not at all Becoming easily annoyed or irritable: 0 = Not at all Feeling afraid as if something awful might happen: 0 = Not at all Total LACIE-7 score (0-4 normal; 5-9 mild; 10-14 moderate; 15-21 severe): 0 Source: Developed by Drs. Jewel Murphy, Violeta Almodovar, Noble Bray and colleagues, with an educational jesi from [employer]. Review of Systems Const Reports daytime sleepiness, Denies headache(s), Reports lethargy and Reports snoring Eyes Denies loss of vision ENT Denies vertigo, Denies dizziness, Denies headache(s), Denies sore throat and Reports other (Left ear itchiness ) Card Denies chest pain, Denies leg edema and Denies lightheadedness Resp Denies cough, Denies hemoptysis, Reports snoring and Denies wheezing GI Denies abdominal pain, Denies melena, Denies constipation, Denies diarrhea and Denies vomiting Denies dysuria, Denies urinary frequency and Denies urinary urgency Musc Denies arthralgias, Denies joint swelling, Denies numbness and Denies tingling Neuro Denies Abnormal speech present, Denies behavioral changes, Denies vertigo, Denies dizziness, Denies headache(s), Denies loss of vision, Denies memory loss, Denies numbness and Denies tingling Psych Denies anxiety, Denies behavioral changes, Denies depression, Denies memory loss and Denies panic attacks Bernabe/Lymph Denies easy bleeding and Denies easy bruising Aller/Immun Denies wheezing Physical exam (Primary Care) Vital Signs: Last Vital Signs Temp 97.3 F 03/15/25 11:18 Pulse 70 03/15/25 11:18 Resp 18 03/15/25 11:18 BP 128/82 03/15/25 11:37 Pulse Ox 94 03/15/25 11:18 Oxygen Delivery Method Room Air 03/15/25 11:18 BMI result Body Mass Index 35.2 Tobacco/Smoking Status: Tobacco use Status Tobacco use date assessed 03/15/25 03/15/25 11:27 Patient Tobacco Use Status Never used Tobacco 03/15/25 11:27 Tobacco use type Cigarette 03/15/25 11:27 e-Cigarette/Vaping Use Never Used 03/15/25 11:27 PHQ-9: PHQ-9 Score PHQ-9: Total score 0 04/15/25 18:50 Depression Screening Interpretation: Negative Thrive Assessment: Date of Thrive Assessment Date Thrive assessed 03/15/25 03/15/25 11:27 Currently or been in a relationship where the following occur: I choose not to answer Const General: healthy appearing, no acute distress, alert and awake Nutritional Appearance: well nourished Orientation/consciousness: oriented to person, oriented to place and oriented to time HENMT Ears: Abnormal EAC present excessive cerumen on the left and erythema on the left General nose exam: Normal nasal mucous membranes and turbinates present Eyes Conjunctivae: conjunctivae normal Sclerae: sclerae normal Pupils: Equal, round and reactive pupils present Neck Neck: Yes no lymphadenopathy and Yes no JVD Thyroid: Thyroid normal Carotids: no bruits Resp Effort & Inspection: normal respiratory effort and not tachypneic Auscultation: no crackles, no rales, no rhonchi and no wheezes Cardio Rate: regular rate Rhythm: regular rhythm Heart sounds: no murmurs and normal S1 and S2 GI Palpation (GI): Soft to palpation, nontender, no hepatomegaly and no splenomegaly Auscultation: normal bowel sounds Skin General skin exam: no rashes or lesions noted and dry skin Neuro General: oriented to person, oriented to place and oriented to time Cranial nerves: Yes Equal, round and reactive pupils present Speech: No Abnormal speech present Gait exam (Neuro): Normal gait present Motor exam (neuro): no tremor noted Extrem Right upper extremity: full ROM Left upper extremity: full ROM Right lower extremity: full ROM; no edema Left lower extremity: full ROM; no edema Psych Mental Status: mental status grossly normal Speech and movement: Normal speech and movement present Affect: normal affect Attitude: cooperative Thought process: Normal thought process present Results Reviewed Results Reviewed: Laboratory Tests 12/02/24 12/02/24 09:10 09:11 WBC 3.9 L RBC 5.76 Hgb 15.7 Hct 50.0 MCV 86.8 MCH 27.3 MCHC 31.4 RDW 13.7 Plt Count 187 Sodium 141 Potassium 4.8 Chloride 105 Carbon Dioxide 29 Anion Gap 12 BUN 16 Creatinine 0.91 Estim Creat Clear Calc Not Reportable Estimated GFR > 60 Fasting Glucose 96 Calcium 9.1 Total Bilirubin 1.2 H AST 26 ALT 29 Alkaline Phosphatase 87 Total Protein 7.3 Albumin 4.0 Triglycerides 65 Cholesterol 167 LDL Cholesterol, Calc 115 H HDL Cholesterol 39 L 25-OH Vitamin D Total 20.5 L TSH 0.67 Urine Color Yellow Urine Appearance Clear Urine pH 8.5 Ur Specific [place] 1.020 Urine Protein Trace Urine Glucose (UA) Negative Urine Ketones Trace Urine Blood Negative Urine Nitrite Negative Ur Leukocyte Esterase Negative Coding Level of Care Code Est Pt Prev Care 40-64y(57306) Diagnoses Annual physical exam Z00.00 Snoring R06.83 Obesity (BMI 30-39.9) E66.9 Low vitamin D level R79.89 Gastroesophageal reflux disease, unspecified whether esophagitis present K21.9 Esophagitis presence: esophagitis presence not specified Mild intermittent asthma without complication J45.20 Asthma complication type: uncomplicated Asthma persistence: intermittent Asthma severity: mild Acute otitis media, unspecified otitis media type H66.90 Chronicity: acute Otitis media type: unspecified Pure hypercholesterolemia E78.00 Hyperlipidemia type: pure hypercholesterolemia Time Spent (min) 38 Assessment & Plan Assessment & Plan (1) Annual physical exam: Code(s): Z00.00 - Encounter for general adult medical examination without abnormal findings Category: Medical Plan: Preventive guidelines and recent labs reviewed with the patient. Sigmoid adenoma noted, due to be repeated in 2024. All first degree relatives should repeat this test in 5 years as well. 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 He was given a date to picker and packer his CPAP machine, but the patient went on vacation and forgot the machine when he returned. He was encourage to call and see when he could picker and packer this machine. (3) Obesity (BMI 30-39.9): Code(s): E66.9 - Obesity, unspecified Category: Medical Plan: Encouraged to exercise for at least 30 minutes a day/5 days a week Healthy eating discussed. Encouraged to eat fruits/vegetables, protein-fish/baked chicken, and to avoid salty/fried foods, sweets, caffeine and carbohydrates. Encouraged to increase water intake 6-8 glasses a day (4) Low vitamin D level: Code(s): R79.89 - Other specified abnormal findings of blood chemistry Category: Medical Plan: Continue vitamin D3-vitamin K2 a 1000-100 IU-mcg daily (5) GERD (gastroesophageal reflux disease): Code(s): K21.9 - Gastro-esophageal reflux disease without esophagitis Category: Medical Qualifiers: Esophagitis presence: esophagitis presence not specified Qualified Code(s): K21.9 - Gastro-esophageal reflux disease without esophagitis Plan: Do not eat meals or drink carbonated beverages within 3 hr of bedtime Decrease the amount of fried, fatty, and spicy foods to decrease gastric acid production Raise the head of the bed using 4 to 6-inch blocks, especially if nocturnal symptoms are present Lose weight if indicated; avoid tight-fitting clothing, especially around the waist Avoid foods that relax the Lower esophageal sphincter (chocolate, peppermint, high-fat foods etc.,) Continue omeprazole 20 mg daily (6) Asthma: Comment: prn inhaler only Code(s): J45.909 - Unspecified asthma, uncomplicated Category: Medical Qualifiers: Asthma complication type: uncomplicated Asthma persistence: intermittent Asthma severity: mild Qualified Code(s): J45.20 - Mild intermittent asthma, uncomplicated Plan: Denies shortness of breath. Patient reports that he has not using an inhaler in a long time. We will continue to monitor (7) Otitis media: Code(s): H66.90 - Otitis media, unspecified, unspecified ear Category: Medical Qualifiers: Chronicity: acute Otitis media type: unspecified Qualified Code(s): H66.90 - Otitis media, unspecified, unspecified ear Plan: Hydrocortisone ascetic acid 1-2% 4 drops optic (ears) t.i.d. ordered. The patient the contact office if symptoms persist after treatment completed. (8) HLD (hyperlipidemia): Code(s): E78.5 - Hyperlipidemia, unspecified Category: Medical Qualifiers: Hyperlipidemia type: pure hypercholesterolemia Qualified Code(s): E78.00 - Pure hypercholesterolemia, unspecified Plan: LDL 115 and HDL 39 Discussed lifestyle modifications including dietary changes and physical activity Encouraged fish oil Medications: New hydrocortisone-acetic acid 1-2 % apply to (cotton) wick; replace wick every 24 hours 4 drps otic (ears) TID 10 mL 0RF omeprazole 20 mg PO DAILY 90 caps 3RF
[2025-03-15 11:37] VITALS: BP 128/82
--- OUTSIDE RECORDS SUMMARY | 2025-03-15 12:06 | XMS_ITS | Patient Health Record ---
Author Organization [facility] Address [address] [place] [id number] Care Team Providers Care Skill Training Program Coordinator Name Role Phone Jewel Gillette Unavailable [phone] Reason For Referral No Information Plan Of Treatment No Information
== END 2025-03-15 12:18 | disposition home or self-care (01) ==
LOC: HO.HMCH 11:16
DX: Z00.00 Encounter for general adult medical examination without abnormal findings (principal); R06.83 Snoring; E66.9 Obesity, unspecified; Z68.35 Body mass index [BMI] 35.0-35.9, adult; R79.89 Other specified abnormal findings of blood chemistry; K21.9 Gastro-esophageal reflux disease without esophagitis; J45.20 Mild intermittent asthma, uncomplicated; H66.92 Otitis media, unspecified, left ear; E78.00 Pure hypercholesterolemia, unspecified